=== PATIENT | male | born 1950 | race Two or more races ===

== ENCOUNTER 2025-09-24 13:19 | Inpatient (IN) | payer OTHER, MEDICAID ==
[~2025-09-24] VITALS: Ht 170.2 cm; Wt 81.0 kg
--- NOTE | 2025-09-24 13:39 | ED.PDOC ---
History of Present Illness HPI Comments 75-year-old male who is Greek-speaking presents to the ER with spouse and prior medical history of diabetes: Surgical history of ERCP and a chief complaint of hyperglycemia. Patient reports on having frequent urination associated with thirst and a sudden onset of dizziness and emesis last night. In triage the patient had a blood pressure 157 systolic and a blood sugar of 410. Denies any other symptoms at this time. Denies chills, fever, N/D, SOB, CP. No other associated symptoms, modifiers, recent injuries or sick contacts present at this time. Chief Complaint: Hyperglycemia Time Seen by MD: 13:30 Reviewed Notes: Nurses Notes, Medications, Allergies Allergies: Coded Allergies: NO KNOWN ALLERGIES (Unverified , 09/24/25) Information Source: Patient Mode of Arrival: Ambulatory Severity: Moderate Timing: Hours Duration: Since onset, Hours Prehospital treatment: None Past Medical History PAST MEDICAL HISTORY: DM Surgical History (Other): ERCP Family History Family History: Reviewed,noncontributory to illness, Family hx of HTN Social History Smoker: Non-Smoker Alcohol: Denies ETOH Use Drugs: Denies Drug Use Lives In: Home Constitutional: denies: chills, diaphoresis, fatigue, fever, malaise, sweats, weakness, others EENTM: denies: blurred vision, double vision, ear bleeding, ear discharge, ear drainage, ear pain, ear ringing, eye pain, eye redness, hearing loss, mouth pain, mouth swelling, nasal discharge, nose bleeding, nose congestion, nose pain, photophobia, tearing, throat pain, throat swelling, voice changes, others Respiratory: denies: cough, hemoptysis, orthopnea, SOB at rest, shortness of breath, SOB with excertion, stridor, wheezing, others Cardiovascular: denies: chest pain, dizzy spells, diaphoresis, Dyspnea on exertion, edema, irregular heart beat, left arm pain, lightheadedness, palpitations, PND, syncope, others Gastrointestinal: reports: vomiting; denies: abdomen distended, abdominal pain, blood streaked bowels, constipated, diarrhea, dysphagia, difficulty swallowing, hematemesis, melena, nausea, poor appetite, poor fluid intake, rectal bleeding, rectal pain, others Genitourinary: reports: frequency (And thirst); denies: burning, dysuria, flank pain, hematuria, incontinence, penile discharge, penile sore, pain, testicle pain, testicle swelling, urgency, others Neurological: reports: dizziness; denies: fainting, headache, left sided numbness, left sided weakness, numbness, paresthesia, pre-existing deficit, right sided numbness, right sided weakness, seizure, speech problems, tingling, tremors, weakness, others Musculoskeletal: denies: back pain, gout, joint pain, joint swelling, muscle pain, muscle stiffness, neck pain, others Integumetry: denies: bruises, change in color, change in hair/nails, dryness, laceration, lesions, lumps, rash, wounds, others Allergic/Immunocompromised: denies: Difficulty Healing, Frequent Infections, Hives, Itching, others Hematologic/Lymphatic: denies: anemia, blood clots, easy bleeding, easy bruising, swollen glands, others Endocrine: denies: excessive hunger, excessive sweating, excessive thirst, excessive urination, flushing, intolerance to cold, intolerance to heat, unexplained weight gain, unexplained weight loss, others Psychiatric: denies: anxiety, bipolar disorder, depression, hopeless, panic disorder, schizophrenia, sleepless, suicidal, others All Other Systems: Reviewed and Negative Physical Exam General Appearance: Moderate Distress HEENT: Normal ENT Inspection, Pharynx Normal, TMs Normal Neck: Full Range of Motion, Non-Tender, Normal, Normal Inspection Respiratory: Chest Non-Tender, Lungs Clear, No Accessory Muscle Use, No Respiratory Distress, Normal Breath Sounds Cardiovascular: No Edema, No JVD, No Murmur, No Gallop, Normal Peripheral Pulses, Regular Rate/Rhythm Breast Exam: Deferred Gastrointestinal: No Organomegaly, Non Tender, No Pulsatile Mass, Normal Bowel Sounds, Soft Genitalia: Deferred Pelvic: Deferred Rectal: Deferred Extremities: No calf tenderness, Normal capillary refill, Normal inspection, Normal range of motion, Non-tender, No pedal edema Musculoskeletal : Apperance: Normal Neurologic: Alert, senior ui software engineer II-XII nml as Tested, Motor Weakness, Normal Affect, Normal Mood, No Sensory Deficits Cerebellar Function: Normal Reflexes: Normal Skin: Dry, Normal Color, Warm Lymphatic: No Adenopathy Was a procedure done? Was a procedure done?: No Differential Dx Considerations may include: Hyperglycemia, uncontrolled diabetes, electrolyte imbalance X-Ray, Labs, Meds, VS Vital Signs Date Time Temp Pulse Resp B/P (MAP) Pulse Ox O2 Delivery O2 Flow Rate FiO2 09/24/25 13:27 81 09/24/25 13:21 99.2 88 18 151/90 95 99.2 Lab Test 09/24/25 13:50 09/24/25 13:41 09/24/25 13:32 Range/Units Urine Color Yellow Yellow Urine Clarity Clear Clear Urine pH 5.5 5.0-9.0 Urine Specific [employer] 1.039 H 1.001-1.035 Urine Protein Negative Negative Urine Ketones Negative Negative Urine Blood Trace H Negative /uL Urine Nitrite Negative Negative Urine Bilirubin 1+ Negative Urine Urobilinogen Normal Negative mg/dL Urine Leukocyte Esterase Negative Negative /uL Urine RBC 3 0 - 3 /hpf Urine Microscopic WBC 1 0-3 /HPF Urine Squamous Epithelial Cells None seen <5 /hpf Urine Bacteria None seen None Seen /hpf Urine Glucose 4+ H Normal mg/dL White Blood Count 10.2 4.4-10.8 10^3/uL Red Blood Count 4.97 4.5-5.90 10^6/uL Hemoglobin 15.3 13.5-17.5 g/dL Hematocrit 44.3 41.0-53.0 % Mean Corpuscular Volume 89.1 80.0-100.0 fL Mean Corpuscular Hemoglobin 30.8 28.0-32.0 pg Mean Corpuscular Hemoglobin Concent 34.6 32.0-36.0 g/dL Red Cell Distribution Width 13.0 11.8-14.3 % Platelet Count 159 140-450 10^3/uL Mean Platelet Volume 10.8 6.9-10.8 fL Neutrophils (%) (Auto) 89.0 H 37.0-80.0 % Lymphocytes (%) (Auto) 6.3 L 10.0-50.0 % Monocytes (%) (Auto) 4.2 0.0-12.0 % Eosinophils (%) (Auto) 0.3 0.0-7.0 % Basophils (%) (Auto) 0.2 0.0-2.0 % Neutrophils # (Auto) 9.1 H 1.6-8.6 10 ^3/uL Lymphocytes # (Auto) 0.6 0.4-5.4 10 ^3/uL Monocytes # (Auto) 0.4 0-1.3 10 ^3/uL Eosinophils # (Auto) 0 0-0.8 10 ^3/uL Basophils # (Auto) 0 0-0.2 10 ^3/uL Nucleated Red Blood Cells 0.0 % Sodium Level 134 L 136-145 mmol/L Potassium Level 4.0 3.5-5.1 mmol/L Chloride Level 98 98-107 mmol/L Carbon Dioxide Level 25 20-31 mmol/L Anion Gap 11 5-15 Blood Urea Nitrogen 12 9-23 mg/dL Creatinine 0.81 0.700-1.30 mg/dL Glomerular Filtration Rate Calc 93 >90 mL/min BUN/Creatinine Ratio 14.8 10.0-20.0 Serum Glucose 391 H 74-106 mg/dL Serum Osmolality Pending Calcium Level 9.4 8.7-10.4 mg/dL Beta-Hydroxybutyric Acid 0.155 < 0.4 mmol/L POC Glucose 410 *H 70-106 mg/dl Current Medications Medications (Trade) Dose Ordered Sig/Oskar Route Start Time Stop Time Status Last Admin Sodium Chloride 1,000 ml @ 1,000 mls/hr Q1H ONCE IV 09/24/25 13:45 09/24/25 14:44 DC 09/24/25 14:23 Insulin Human Regular (InsuLIN R) 5 units ONCE ONCE IV 09/24/25 13:45 09/24/25 13:46 DC 09/24/25 14:03 The patient's CBC and chemistry panel shows hyperglycemia at 309 The patient is was given normal saline at 1 L bolus Patient was given insulin 5 units IV push for the hyperglycemia The urine test is positive for glucose but no sign of infection The patient is being admitted the diagnosis of uncontrolled diabetes. Images Reviewed?: Images reviewed and evaluated by me Time of 1ST Reevaluation: 14:00 Reevaluation 1ST: Unchanged Patient Education/Counseling: Diagnosis, Treatment, Prognosis Family Education/Counseling: No Family Present SEPSIS Sepsis Screen Date sepsis recognized/suspect: Sep 24, 2025 Time Sepsis recognized/suspect: 1323 Recent Procedure: No On Antibiotic Therapy: No Respiratory Rate >20: No Heart Rate >90: Yes Temp<36 C (96.8 F) or >38.3 C: No SBP <90 or MAP <65 mmHG: No New Acute Mental Status Change: No Is the patient on CPAP, BIPAP,: No Physician Orders Heplock Iv (09/24/25 13:34) Manager Administration (09/24/25 13:34) Blood Pressure (09/24/25 13:34) Pulse Oximetry (09/24/25 13:34) Vital Signs Date Time Temp Pulse Resp B/P (MAP) Pulse Ox O2 Delivery O2 Flow Rate FiO2 09/24/25 13:27 81 09/24/25 13:21 99.2 88 18 151/90 95 99.2 Laboratory Tests Test 09/24/25 13:41 White Blood Count 10.2 10^3/uL (4.4-10.8) Medications Medications Dose Ordered Sig/Oskar Route Start Time Stop Time Status Last Admin Dose Admin Insulin Human Regular 5 units ONCE ONCE IV 09/24/25 13:45 09/24/25 13:46 DC 09/24/25 14:03 Sodium Chloride 1,000 ml @ 1,000 mls/hr Q1H ONCE IV 09/24/25 13:45 09/24/25 14:44 DC 09/24/25 14:23 Departure 1 Departure Time of Disposition: 16:07 Impression: Primary Impression: Uncontrolled diabetes mellitus Qualified Codes: E13.65 - Other specified diabetes mellitus with hyperglycemia Disposition: ADMITTED INPATIENT Admit to: Med Surg Condition: Fair Critical Care Note Critical Care Time?: No Stability Stability form required: Yes Unstable for transfer: ED Physician Assesment (Clinical assesment) Heart Score Heart Score: Heart Score Response (Comments) Value History N/A 0 EKG N/A 0 Age N/A 0 Risk Factors N/A 0 Troponin N/A 0 Total 0 I personally scribed for MICHAEL YOUSIF MD ([email or web address]) on 09/24/25 at 13:39. Electronically submitted by Isrrael Pham ([email or web address]). MICHAEL YOUSIF MD Sep 24, 2025 13:39
[2025-09-24 13:50] LABS: Hematocrit 44.3 % (41.0-53.0); Hemoglobin 15.3 g/dL (13.5-17.5); Mean Corpuscular Hemoglobin 30.8 pg (28.0-32.0); Mean Corpuscular Volume 89.1 fL (80.0-100.0); Nucleated Red Blood Cells % 0.0 %
--- NOTE | 2025-09-24 13:54 | ECG ---
[facility] Test Date: 2025-09-24 Test Time: 13:27:57 Pat Name: KEYLA ROSENBAUM Department: ED Room: 0246 Gender: M Net Lead Developer: OMAR : 1950 Requested By: MICHAEL YOUSIF Order Number: [id number] Reading MD: Pancho Brizuela Measurements Intervals [place] Rate: 81 P: 6 WI: 156 QRS: -70 QRSD: 97 T: 57 QT: 357 QTc: 415 Interpretive Statements Sinus rhythm Inferior infarct, old Borderline ST elevation, anterior leads Electronically Signed On 09-26-2025 17:19:46 PST by Pancho Brizuela Please click the below link to view image of tracing.
[2025-09-24] MEDS: InsuLIN REG 1unit/0.01ml Soln (100units/ml) IV ONE (14:03)
[2025-09-24 14:14] LABS: Chloride 98 mmol/L (98-107); Potassium 4.0 mmol/L (3.5-5.1)
[2025-09-24 14:14] LABS: Urine Protein, UAD Negative (Negative)
[2025-09-24 14:15] LABS: Anion Gap 11 (5-15); Carbon Dioxide 25 mmol/L (20-31); Sodium 134 mmol/L (136-145)
[2025-09-24 14:16] LABS: Calcium 9.4 mg/dL (8.7-10.4)
[2025-09-24 14:21] LABS: BUN/Creatinine Ratio 14.8 (10.0-20.0); Blood Urea Nitrogen 12 mg/dL (9-23); Glucose 391 mg/dL (74-106)
[2025-09-24] MEDS: SODIUM CHLORIDE 0.9% 1,000 ML IV ONE (14:23)
--- NOTE | 2025-09-24 15:42 | DVHHPRES ---
History of Present Illness Resident Creating Document: RENETTA VILLARREAL RESIDENT History of Present Illness Tee Maguire, A 75-year-old Emirati-speaking male with a history of type 2 diabetes on metformin, BPH, osteoarthritis, vitamin d deficiency and prior ERCP presents to the ER with hyperglycemia, reporting frequent urination, thirst, and sudden onset dizziness with emesis last night; triage noted BP 157 systolic and blood glucose 410; patient denies fever, chills, nausea, diarrhea, chest pain, shortness of breath, recent injuries, or sick contacts. PMHx: type 2 diabetes on metformin, BPH, osteoarthritis, vitamin d deficiency PSHx: ERCP Family history: diabetes mellitus, HTN, noncontributory to the admission Social history: Emirati-speaking, Patient is a non-smoker, denies alcohol and illicit drug use, and lives at home.ck. Review of Systems Constitutional: Yes: Weakness, Malaise; No: Fever, Chills, Sweats, Other Eyes: No: Pain, Vision change, Conjunctivae inflammation, Eyelid inflammation, Other, Redness ENT: No: Ear pain, Ear discharge, Nose pain, Nose discharge, Nose congestion, Mouth pain, Mouth swelling, Throat pain, Throat swelling, Other Respiratory: No: Cough, Dry, Shortness of breath, SOB with excertion, Wheezing, Hemoptysis, Pleuritic Pain, Sputum, Wheezing, Other Cardiovascular: Lt Headedness; No: Chest Pain, Palpitations, Orthopnea, Paroxysmal Noc. Dyspnea, Edema, Other Gastrointestinal: No: Nausea, Vomiting, Abdominal Pain, Diarrhea, Constipation, Melena, Hematochezia, Other Genitourinary: No Dysuria; Frequency; No Incontinence, No Hematuria, No Retention, No Other Musculoskeletal: No: other, neck pain, shoulder pain, arm pain, back pain, hand pain, leg pain, foot pain Skin: No: Rash, Lesions, Jaundice, Bruising, Other Neurological: No: Weakness, Numbness, Incoordination, Change in speech, Confusion, Seizures, Other Allergies: Coded Allergies: NO KNOWN ALLERGIES (Unverified , 09/24/25) Medications Current Medications Medications Dose Ordered Sig/Oskar Route Start Time Stop Time Status Last Admin Dose Admin Acetaminophen/ Hydrocodone Bitart 1 tab Q4HP PRN PO 09/24/25 15:45 Ondansetron HCl 4 mg Q4HP PRN IV 09/24/25 15:45 Docusate Sodium 100 mg BIDPRN PRN PO 09/24/25 15:45 Acetaminophen 650 mg Q6HP PRN PO 09/24/25 15:45 Morphine Sulfate 2 mg Q4HPRN PRN IV 09/24/25 15:45 Enoxaparin Sodium 40 mg DAILY SC 09/24/25 15:45 Nitroglycerin 0.4 mg Q5MINP PRN SL 09/24/25 15:45 Morphine Sulfate 2 mg Q30M PRN IV 09/24/25 15:45 Tamsulosin HCl 0.4 mg QPM PO 09/24/25 18:00 Exam Vital Signs Vital Signs Date Time Temp Pulse Resp B/P (MAP) Pulse Ox O2 Delivery O2 Flow Rate FiO2 09/24/25 13:27 81 09/24/25 13:21 99.2 18 151/90 95 99.2 General Appearance: Alert, Oriented X3, Cooperative, No acute distress HEENT: Atraumatic, PERRLA, EOMI, Mucous membr. moist/pink, Other (icterus) Respiratory: Clear to auscultation, Normal air movement, Other (in room air ) Cardiovascular: Regular rate, Normal S1, Normal S2, No murmurs Abdominal: Normal bowel sounds, Soft, No hepatospenomegaly, No masses, Other (RUQ tenderness. ) Extremities: No clubbing, No cyanosis, No edema, Normal pulses, No tendernes s/swelling Skin: No rashes, No breakdown, No significant lesion Neuro: Normal gait, Normal speech, Strength at 5/5 X4 ext, Normal tone, Sensation intact, Cranial nerves 3-12 NL, Reflexes 2+ Psych/Mental Status: Mental status NL, Mood NL Labs/Xrays Labs Test 09/24/25 13:50 09/24/25 13:41 09/24/25 13:32 Range/Units Urine Color Yellow Yellow Urine Clarity Clear Clear Urine pH 5.5 5.0-9.0 Urine Specific [employer] [place] 1.039 H 1.001-1.035 Urine Protein Negative Negative Urine Ketones Negative Negative Urine Blood Trace H Negative /uL Urine Nitrite Negative Negative Urine Bilirubin 1+ Negative Urine Urobilinogen Normal Negative mg/dL Urine Leukocyte Esterase Negative Negative /uL Urine RBC 3 0 - 3 /hpf Urine Microscopic WBC 1 0-3 /HPF Urine Squamous Epithelial Cells None seen <5 /hpf Urine Bacteria None seen None Seen /hpf Urine Glucose 4+ H Normal mg/dL White Blood Count 10.2 4.4-10.8 10^3/uL Red Blood Count 4.97 4.5-5.90 10^6/uL Hemoglobin 15.3 13.5-17.5 g/dL Hematocrit 44.3 41.0-53.0 % Mean Corpuscular Volume 89.1 80.0-100.0 fL Mean Corpuscular Hemoglobin 30.8 28.0-32.0 pg Mean Corpuscular Hemoglobin Concent 34.6 32.0-36.0 g/dL Red Cell Distribution Width 13.0 11.8-14.3 % Platelet Count 159 140-450 10^3/uL Mean Platelet Volume 10.8 6.9-10.8 fL Neutrophils (%) (Auto) 89.0 H 37.0-80.0 % Lymphocytes (%) (Auto) 6.3 L 10.0-50.0 % Monocytes (%) (Auto) 4.2 0.0-12.0 % Eosinophils (%) (Auto) 0.3 0.0-7.0 % Basophils (%) (Auto) 0.2 0.0-2.0 % Neutrophils # (Auto) 9.1 H 1.6-8.6 10 ^3/uL Lymphocytes # (Auto) 0.6 0.4-5.4 10 ^3/uL Monocytes # (Auto) 0.4 0-1.3 10 ^3/uL Eosinophils # (Auto) 0 0-0.8 10 ^3/uL Basophils # (Auto) 0 0-0.2 10 ^3/uL Nucleated Red Blood Cells 0.0 % Sodium Level 134 L 136-145 mmol/L Potassium Level 4.0 3.5-5.1 mmol/L Chloride Level 98 98-107 mmol/L Carbon Dioxide Level 25 20-31 mmol/L Anion Gap 11 5-15 Blood Urea Nitrogen 12 9-23 mg/dL Creatinine 0.81 0.700-1.30 mg/dL Glomerular Filtration Rate Calc 93 >90 mL/min BUN/Creatinine Ratio 14.8 10.0-20.0 Serum Glucose 391 H 74-106 mg/dL Calcium Level 9.4 8.7-10.4 mg/dL Beta-Hydroxybutyric Acid 0.155 < 0.4 mmol/L POC Glucose 410 *H 70-106 mg/dl SEPSIS Sepsis Screen Date sepsis recognized/suspect: Sep 24, 2025 Time Sepsis recognized/suspect: 1322 Recent Procedure: No On Antibiotic Therapy: No Respiratory Rate >20: No Heart Rate >90: Yes Temp<36 C (96.8 F) or >38.3 C: No SBP <90 or MAP <65 mmHG: No New Acute Mental Status Change: No Is the patient on CPAP, BIPAP,: No Physician Orders Heplock Iv (09/24/25 13:34) Contract Accountant (09/24/25 13:34) Blood Pressure (09/24/25 13:34) Pulse Oximetry (09/24/25:34) Admit (09/24/25:) Allergies (09/24/25:) Code Status (09/24/25 15:) Hydrocodone-Acet 5/325mg Tab (Recluse 5/32 (09/24/25 15:45) Ondansetron Hcl (Zofran) (09/24/25 15:45) Docusate Sodium Capsule (Colace Capsule) (09/24/25 15:45) Complete Blood Count (09/25/25 04:00) Comprehensive Metabolic Panel (09/25/25 04:00) Cardiac Diet-2gna,Lofat,Lochol (09/24/25 Dinner) Condition: Serious (09/24/25 15:31) Acetaminophen Tablet (Tylenol Tablet) (09/24/25 15:45) Enoxaparin Sodium (Lovenox) (09/24/25 15:45) Nitroglycerin Sublingual (Ntrostat Subli (09/24/25 15:45) Oxygen By Nasal Cannula (09/24/25:31) Stat Ekg For Chest Pain (09/24/25:31) Notify Md Of Changes From Base (09/24/25:31) Lube Worker For 24 Hours (09/24/25 15:31) Emergency Dysrhythmia Protocol (09/24/25 15:31) Rhythm Strips Once Every Shift (09/24/25 15:31) Morphine Sulfate Injection (09/24/25 15:45) Morphine Sulfate Injection (09/24/25 15:45) Tamsulosin Hydrochloride (Flomax) (09/24/25 18:00) Osmolality, Serum (09/24/25 15:35) Lipase (09/24/25 15:38) Urinalysis (09/24/25 15:38) Covid19 Antigen [place] (09/24/25 ) Rapid Influenza A&B (09/24/25 15:38) Basic Metabolic Panel (09/24/25 15:38) Vital Signs Date Time Temp Pulse Resp B/P (MAP) Pulse Ox O2 Delivery O2 Flow Rate FiO2 09/24/25 13:27 81 09/24/25 13:21 99.2 88 18 151/90 95 99.2 Laboratory Tests Test 09/24/25 13:41 White Blood Count 10.2 10^3/uL (4.4-10.8) Medications Medications Dose Ordered Sig/Oskar Route Start Time Stop Time Status Last Admin Dose Admin Insulin Human Regular 5 units ONCE ONCE IV 09/24/25 13:45 09/24/25 13:46 DC 09/24/25 14:03 5 UNITS Sodium Chloride 1,000 ml @ 1,000 mls/hr Q1H ONCE IV 09/24/25 13:45 09/24/25 14:44 DC 09/24/25 14:23 1,000 MLS/HR Assessment/Plan Assessment/Plan #Presented with HHS: Ruled out DKA, negative anion gap, negative ketones, negative acidosis but presented BG of 410, serum osmolality 302, status post IV insulin, BG slowly came down to 391, 3O2, now below 250 at bedside check. Conservative management to continue, IV fluid, CC diet, basal bolus insulin to continue. Patient will need close follow up with campaign manager outpatient michael and insulin regimen at discharge. Ruled out secondary cause of stress / trigger with ruling out UTI, respiratory infection, viral panel, any other possible trigger. #Dizziness, presyncope: Denies any fall or loss of consciousness, could be age related, physical therapy before discharge to ensure safety in the geriatric patient. Echo to rule out any cardiac structural disease. Orthostatic vitals to james #Undiscovered essential hypertension, uncontrolled: Patient is at home not on any antihypertensives presented with elevated blood pressure, between 170s to 150s, given diabetic target blood pressure 130/80 or below as per aha/ ACC guidelines but liberal blood pressure control is also reasonable in this sedated patient. Started with amlodipine 5 mg daily, needs to [place] home with the m edications. #type 2 diabetes on metformin , uncontrolled: presented with HbA1c of 10.1, started on basal bolus dose, diabetic counseling, CC diet lifestyle modification to continue. Target blood glucose in-hospital 140-180, avoid hypoglycemia. #BPH: Home tamsulosin 0.4mg, continue for now, no other urinary symptoms, UA unremarkable except high glucose load. #osteoarthritis: Age-related, mobility and stability check with the physical therapist as patient has intermittent dizziness. #vitamin d deficiency: Supplements to continue. #Transamnitis: Liver US, f/u CMP, hepatitis panel, avoid hepatotoxics. check INR/PT rule out cirrhosis vs fatty liver. PUD prophylaxis: protonix 40mg/not needed DVT prophylaxis: Levonox 40mg/SCD/brisk movement. Barriers to discharge: Medical diagnosis and management in progress. Patient lives with family. PT eval before discharge. PCP: Dr. Mauri Nolasco. poor follow up. Specialist Relevant To Admission: Thread Marker, not consulted but we will benefit from following up outpatient michael. Case discussed with Dr. Gilbert. Code Status: Full Code. Discussion For goals of care and care plan needed total 29 minutes bedside. as patient is not getting IV insulin drip no need to keep the patient at STEF/ICU level. close follow up at telemetry level. Plan discussed with: Patient, Other (family ) My Orders Orders - RENETTA VILLARREAL RESIDENT Procedure Category Date Status Time Admit ADMIT 09/24/25 Transmitted 15:31 Allergies MOY 09/24/25 In Process 15:31 Code Status CODE 09/24/25 Transmitted 15:31 Hydrocodone-Acet PHA 09/24/25 In Process 5/325mg Tab (Recluse 15:45 Ondansetron Hcl PHA 09/24/25 In Process (Zofran) 15:45 Docusate Sodium PHA 09/24/25 In Process Capsule (Colace 15:45 Complete Blood Count LAB 09/25/25 Verified 04:00 Comprehensive LAB 09/25/25 Verified Metabolic Panel 04:00 Cardiac DIET 09/24/25 Transmitted Diet-2gna,Lofat,Lochol Dinner Condition: Serious MOY 09/24/25 In Process 15:31 Acetaminophen Tablet PHA 09/24/25 In Process (Tylenol Tablet) 15:45 Enoxaparin Sodium PHA 09/24/25 In Process (Lovenox) 15:45 Nitroglycerin PHA 09/24/25 In Process Sublingual (Ntrostat 15:45 Oxygen By Nasal RT 09/24/25 Transmitted Cannula 15:31 Stat Ekg For Chest [facility] 09/24/25 In Process Pain 15:31 Notify Md Of Changes MOY 09/24/25 In Process From Base 15:31 Lube Worker For MOY 09/24/25 In Process 24 Hours 15:31 Emergency Dysrhythmia MOY 09/24/25 In Process Protocol 15:31 Rhythm Strips Once MOY 09/24/25 In Process Every Shift 15:31 Morphine Sulfate PHA 09/24/25 In Process Injection 15:45 Morphine Sulfate PHA 09/24/25 In Process Injection 15:45 Tamsulosin PHA 09/24/25 In Process Hydrochloride (Flomax) 18:00 Osmolality, Serum LAB 09/24/25 Logged 15:35 Lipase LAB 09/24/25 Logged 15:38 Urinalysis LAB 09/24/25 Logged 15:38 Covid19 Antigen [place]lin LAB 09/24/25 Logged Rapid Influenza A&B LAB 09/24/25 Logged 15:38 Basic Metabolic Panel LAB 09/24/25 Logged 15:38 Date of Service: Sep 24, 2025 Billing Provider: PRATIBHA GILBERT MD Common Visit Codes: 29183-[id number] INP/OBS CARE (HIGH) Secondary Visit Codes: 89985-[id number] CARE PLAN 30 MINUTES RENETTA VILLARREAL RESIDENT Sep 24, 2025 15:42
[2025-09-24] MEDS ORDERED: HYDROcodone-ACET 5/325MG TAB PO PRN (15:45)
[2025-09-24] MEDS ORDERED: DOCUSATE SOD 100 MG CAP PO PRN (15:45)
[2025-09-24] MEDS ORDERED: ONDANSETRON HCL 4 MG/2 ML VIAL IV PRN (15:45)
[2025-09-24] MEDS ORDERED: MORPHINE SULFATE 4 MG/ML SYR/VIAL IV PRN ×2 (15:45)
[2025-09-24] MEDS ORDERED: NITROGLYCERIN 0.4 MG SL TAB SL PRN (15:45)
[2025-09-24] MEDS: ENOXAPARIN SOD 40 MG/0.4 ML SYRINGE SC SCH (16:09)
[2025-09-24] MEDS ORDERED: DEXTROSE (50%) 50ML SYRG IV PRN (16:30)
[2025-09-24] MEDS: InsuLIN REG 1unit/0.01ml Soln (100units/ml) SC SCH (17:16)
[2025-09-24] MEDS: ACCU-CHEK COMFORT CURVE STRIP VI SCH (17:16)
[2025-09-24 17:17] LABS: COVID19 ANTIGEN SOFIA FIA NEGATIVE (NEGATIVE)
[2025-09-24] MEDS ORDERED: TAMSULOSIN HYDROCHLORIDE 0.4 MG CAP PO SCH (18:00)
[2025-09-24 18:33] VITALS: BP 174/94; PULSE 80; RESP 18; TEMP 97.8; O2SAT 95
[2025-09-24] MEDS ORDERED: METF-370 PO (19:43)
[2025-09-24 19:44] LABS: Albumin 4.5 g/dL (3.2-4.8); Total Protein 7.4 g/dL (5.7-8.2)
[2025-09-24] MEDS ORDERED: LISI40TA16 PO (19:46)
[2025-09-24] MEDS ORDERED: TAMS1CAP25 PO (19:46)
[2025-09-24 19:50] LABS: Alanine Aminotransferase 412.0 U/L (7-40); Alkaline Phosphatase 124.0 U/L (46-116); Bilirubin, Direct 2.5 mg/dL (<0.3); Bilirubin, Total 4.1 mg/dL (0.2-1.0)
[2025-09-24 21:00] VITALS: BP 159/93; PULSE 87; RESP 17; TEMP 98.3; O2SAT 97
[2025-09-24 21:26] LABS: INR 1.19 (0.9-1.15); Prothrombin Time 12.4 sec (9.3-11.8)
[2025-09-24] MEDS: INSULIN LANTUS (GLARGINE) 1 /0.01ml (100units/ml) SC SCH (22:24)
[2025-09-24] MEDS: ATORVASTATIN 20 MG TAB PO SCH (22:25)
--- NOTE | 2025-09-24 22:55 | DVH ---
ABDOMINAL ULTRASOUND CLINICAL HISTORY: rule out cirrhosis and hepatobiliary obstruction TECHNIQUE: Multiple grayscale and color Doppler ultrasound images were obtained of the abdomen. WID: COMPARISON: None FINDINGS: Liver and Biliary System: Increased echogenicity, normal size measuring 16.1 cm. No focal hepatic observations. No intrahepatic bile duct dilatation. The common duct measures 0.6 cm at the reanna hepatis. The gallbladder is not visualized. Sonographic kenny's sign is negative. Pancreas: Visualized portions are unremarkable. Kidneys: The right kidney is 10.4 cm . No hydronephrosis, increased echogenicity, shadowing stone, or focal lesion. IMPRESSION: 1. Hepatic steatosis. 2. Gallbladder is not visualized and may be contracted. 3. No biliary ductal dilatation.
[2025-09-25] VITALS (7 sets, daily range): BP systolic 133–153; BP diastolic 76–85; PULSE 75–94; RESP 16–19; TEMP 97.1–98.6; O2SAT 93–97
[2025-09-25] MEDS: SODIUM CHLORIDE 0.9% 1,000 ML IV SCH
[2025-09-25] MEDS: TAMSULOSIN HYDROCHLORIDE 0.4 MG CAP PO SCH (01:07)
--- NOTE | 2025-09-25 05:42 | DVH ---
CHEST RADIOGRAPH Indication: Rule out community acquired pneumonia, Technique: Single frontal view of the chest was obtained COMPARISON: None FINDINGS: Lines and Tubes: None Lungs: Increased interstital prominence. This may represent pulmonary vascular congestion and/or viral pneumonia. Pleura: No effusion.No pneumothorax. Cardiomediastinal contours: Unremarkable Bones: Unremarkable IMPRESSION: Increased interstital prominence. This may represent pulmonary vascular congestion and/or viral pneumonia.
[2025-09-25 06:30] LABS: Hematocrit 39.9 % (41.0-53.0); Hemoglobin 13.5 g/dL (13.5-17.5); Mean Corpuscular Hemoglobin 30.1 pg (28.0-32.0); Mean Corpuscular Volume 89.2 fL (80.0-100.0); Nucleated Red Blood Cells % 0.0 %
[2025-09-25 06:57] LABS: Alkaline Phosphatase 106 U/L (46-116); Anion Gap 12 (5-15); BUN/Creatinine Ratio 18.6 (10.0-20.0); Blood Urea Nitrogen 11 mg/dL (9-23); Carbon Dioxide 24 mmol/L (20-31); Chloride 101 mmol/L (98-107); Sodium 137 mmol/L (136-145); Total Protein 6.3 g/dL (5.7-8.2)
[2025-09-25 06:58] LABS: Albumin 3.7 g/dL (3.2-4.8)
[2025-09-25 07:03] LABS: Alanine Aminotransferase 275 U/L (7-40); Bilirubin, Total 2.5 mg/dL (0.2-1.0); Calcium 8.7 mg/dL (8.7-10.4); Glucose 169 mg/dL (74-106); Potassium 3.1 mmol/L (3.5-5.1)
[2025-09-25] MEDS: ACETAMINOPHEN 325 MG TAB PO PRN (10:27)
[2025-09-25] MEDS: CHOLECALCIFEROL (VITD3) 1,000UNIT=25mCg TAB PO SCH (10:28)
--- NOTE | 2025-09-25 10:45 | DVHPN2 ---
Changes from previous H/P or p: No Changes Eyes: No Pain, No Vision change, No Conjunctivae inflammation, No Eyelid inflammation, No Other, No Redness ENT: No Ear pain, No Ear discharge, No Nose pain, No Nose discharge, No Nose congestion, No Mouth pain, No Mouth swelling, No Throat pain, No Throat swelling, No Other Cardiovascular: No Chest Pain, No Palpitations, No Orthopnea, No Paroxysmal Noc. Dyspnea, No Edema; Lt Headedness; No Other Respiratory: No Cough, No Dry, No Shortness of breath, No SOB with excertion, No Wheezing, No Hemoptysis, No Pleuritic Pain, No Sputum, No Other Gastrointestinal: No Nausea, No Vomiting, No Abdominal Pain, No Diarrhea, No Constipation, No Melena, No Hematochezia, No Other Genitourinary: No Dysuria; Frequency; No Incontinence, No Hematuria, No Retention, No Other Musculoskeletal: No other, No neck pain, No shoulder pain, No arm pain, No back pain, No hand pain, No leg pain, No foot pain Skin: No Rash, No Lesions, No Jaundice, No Bruising, No Other Objective Vitals Vital Signs Date Time Temp Pulse Resp B/P (MAP) Pulse Ox O2 Delivery O2 Flow Rate FiO2 09/25/25 10:27 133/83 09/25/25 09:24 97.1 80 17 95 97.1 09/24/25 20:00 Room Air* 0 21 Intake/Output Intake and Output 09/25/25 07:00 Intake Total 400 ml Balance 400 ml Intake Oral 400 ml # Voids 4 # Bowel Movements 1 Medications Current Medications Medications Dose Ordered Sig/Oskar Route Start Time Stop Time Status Last Admin Dose Admin Acetaminophen/ Hydrocodone Bitart 1 tab Q4HP PRN PO 09/24/25 15:45 Ondansetron HCl 4 mg Q4HP PRN IV 09/24/25 15:45 Docusate Sodium 100 mg BIDPRN PRN PO 09/24/25 15:45 Acetaminophen 650 mg Q6HP PRN PO 09/24/25 15:45 09/25/25 10:27 650 MG Morphine Sulfate 2 mg Q4HPRN PRN IV 09/24/25 15:45 Enoxaparin Sodium 40 mg DAILY SC 09/24/25 15:45 09/25/25 10:28 40 MG Nitroglycerin 0.4 mg Q5MINP PRN SL 09/24/25 15:45 Morphine Sulfate 2 mg Q30M PRN IV 09/24/25 15:45 Atorvastatin Calcium 40 mg HS PO 09/24/25 22:00 09/24/25 22:25 40 MG Insulin Glargine 25 units HS SC 09/24/25 22:00 09/24/25 22:24 25 UNITS Diagnostic Test (Pha) 1 strip ACHS 09/24/25 17:00 09/25/25 06:30 1 STRIP Insulin Human Regular ACHS SC 09/24/25 17:00 09/25/25 06:32 3 UNITS Dextrose 50 ml UD PRN IV 09/24/25 16:30 Amlodipine Besylate 5 mg DAILY PO 09/25/25 10:00 09/25/25 10:27 5 MG Cholecalciferol 2,000 unit DAILY PO 09/25/25 10:00 09/25/25 10:28 2,000 UNIT Sodium Chloride 1,000 ml @ 75 mls/hr [id number] IV 09/24/25 19:00 09/25/25 00:00 75 MLS/HR Tamsulosin HCl 0.4 mg QPM PO 09/25/25 01:30 09/25/25 01:07 0.4 MG Laboratory Results Laboratory Tests 09/25/25 05:37 Chemistry Test 09/24/25 13:41 09/25/25 05:37 Albumin 4.5 g/dL (3.2-4.8) 3.7 g/dL (3.2-4.8) Calcium Level 9.4 mg/dL (8.7-10.4) 8.7 mg/dL (8.7-10.4) Total Protein 7.4 g/dL (5.7-8.2) 6.3 g/dL (5.7-8.2) Coagulation Test 09/24/25 20:53 Prothrombin Time 12.4 sec (9.3-11.8) H Prothrombin Time INR 1.19 (0.9-1.15) H LFT Test 09/24/25 13:41 09/25/25 05:37 Alanine Aminotransferase (ALT) 412 U/L (7-40) H 275 U/L (7-40) H Alkaline Phosphatase 124 U/L (46-116) H 106 U/L (46-116) Aspartate Amino Transferase (AST) 342 U/L (13-40) H 126 U/L (13-40) H Direct Bilirubin 2.5 mg/dL (<0.3) H Total Bilirubin 4.1 mg/dL (0.2-1.0) H 2.5 mg/dL (0.2-1.0) H HgA1c, TSH Test 09/24/25 13:41 Hemoglobin A1c 10.1 % A1C (<5.7) H Urinalysis Test 09/24/25 13:50 Urine Color Yellow (Yellow) Urine Clarity Clear (Clear) Urine pH 5.5 (5.0-9.0) Urine Specific [place] 1.039 (1.001-1.035) Urine Protein Negative (Negative) Urine Ketones Negative (Negative) Urine Blood Trace /uL (Negative) H Urine Nitrite Negative (Negative) Urine Bilirubin 1+ (Negative) Urine Urobilinogen Normal mg/dL (Negative) Urine Leukocyte Esterase Negative /uL (Negative) Urine RBC 3 /hpf (0 - 3) Urine Microscopic WBC 1 /HPF (0-3) Urine Squamous Epithelial Cells None seen /hpf (<5) Urine Bacteria None seen /hpf (None Seen) Urine Glucose 4+ mg/dL (Normal) H Assessment/Plan Assessment/Plan #HHS: Ruled out DKA, negative anion gap, negative ketones, negative acidosis but presented BG of 410, serum osmolality 302, status post IV insulin, BG slowly came down to 391, 3O2, now below 250 at bedside check. Conservative management to continue, IV fluid, CC diet, basal bolus insulin to continue. Patient will need close follow up with project executive outpatient michael and insulin regimen at discharge. Ruled out secondary cause of stress / trigger with ruling out UTI, respiratory infection, viral panel, any other possible trigger. #Dizziness, presyncope: Denies any fall or loss of consciousness, could be age related, physical therapy before discharge to ensure safety in the geriatric patient. Echo to rule out any cardiac structural disease. Orthostatic vitals to james #Undiscovered essential hypertension, uncontrolled: Patient is at home not on any antihypertensives presented with elevated blood pressure, between 170s to 150s, given diabetic target blood pressure 130/80 or below as per aha/ ACC guidelines but liberal blood pressure control is also reasonable in this sedated patient. Started with amlodipine 5 mg daily, needs to [facility] home with the medications. #type 2 diabetes on metformin , uncontrolled: presented with HbA1c of 10.1, started on basal bolus dose, diabetic counseling, CC diet lifestyle modification to continue. Target blood glucose in-hospital 140-180, avoid hypoglycemia. #BPH: Home tamsulosin 0.4mg, continue for now, no other urinary symptoms, UA unremarkable except high glucose load. #osteoarthritis: Age-related, mobility and stability check with the physical therapist as patient has intermittent dizziness. #vitamin d deficiency: Supplements to continue. #Transamnitis: Liver US, f/u CMP, hepatitis panel, avoid hepatotoxics. check INR/PT rule out cirrhosis vs fatty liver. PUD prophylaxis: protonix 40mg/not needed DVT prophylaxis: Levonox 40mg/SCD/brisk movement. Continue current management. BG still high above 300s Will add lantus 25 units qhs Continue SSI DW daughter and patient regarding to goal of care. Plan discussed with: Patient, Daughter Date of Service: Sep 25, 2025 Billing Provider: WESTON GUADALUPE MD Common Visit Codes: [id number] INP/OBS CARE(HIGH) WESTON GUADALUPE MD Sep 25, 2025 10:45
[2025-09-25 15:34] LABS: Hepatitis A Total Antibody Positive (Negative); Hepatitis B Surface Antigen Negative (Negative); Hepatitis C Antibody Negative (Negative)
[2025-09-25] MEDS: POTASSIUM CHL 20 Meq TABLET PO ONE (18:27)
[2025-09-25] MEDS: FUROSEMIDE 40 MG/4 ML VIAL IV ONE (18:34)
[2025-09-25] MEDS: INSULIN LANTUS (GLARGINE) 1 /0.01ml (100units/ml) SC SCH (21:47)
[2025-09-26] VITALS (7 sets, daily range): BP systolic 131–148; BP diastolic 74–91; PULSE 75–89; RESP 16–18; TEMP 97.8–99; O2SAT 94–96
--- NOTE | 2025-09-26 11:53 | DVHPN2 ---
Subjective The patient seen and examined at bedside. Still nausea but no vomiting. Reviewed: Care Plan, H&P, Labs, Medications, Previous Orders, Radiology Changes from previous H/P or p: No Changes Eyes: No Pain, No Vision change, No Conjunctivae inflammation, No Eyelid inflammation, No Other, No Redness ENT: No Ear pain, No Ear discharge, No Nose pain, No Nose discharge, No Nose congestion, No Mouth pain, No Mouth swelling, No Throat pain, No Throat swelling, No Other Cardiovascular: No Chest Pain, No Palpitations, No Orthopnea, No Paroxysmal Noc. Dyspnea, No Edema; Lt Headedness; No Other Respiratory: No Cough, No Dry, No Shortness of breath, No SOB with excertion, No Wheezing, No Hemoptysis, No Pleuritic Pain, No Sputum, No Other Gastrointestinal: No Nausea, No Vomiting, No Abdominal Pain, No Diarrhea, No Constipation, No Melena, No Hematochezia, No Other Genitourinary: No Dysuria; Frequency; No Incontinence, No Hematuria, No Retention, No Other Musculoskeletal: No other, No neck pain, No shoulder pain, No arm pain, No back pain, No hand pain, No leg pain, No foot pain Skin: No Rash, No Lesions, No Jaundice, No Bruising, No Other Objective Vitals Vital Signs Date Time Temp Pulse Resp B/P (MAP) Pulse Ox O2 Delivery O2 Flow Rate FiO2 09/26/25 10:11 141/81 09/26/25 08:33 99.0 78 17 96 99.0 09/26/25 08:00 Room Air* 0 21 Intake/Output Intake and Output 09/26/25 07:00 Intake Total 700 ml Output Total 600 ml Balance 100 ml Intake Oral 700 ml Output Urine Total 600 ml # Voids 7 # Bowel Movements 2 General Appearance: Alert, Oriented X3, Cooperative, No acute distress HEENT: Atraumatic, PERRLA, EOMI, Mucous membr. moist/pink Neck: Supple Lungs: Clear to auscultation, Normal air movement Cardiovascular: Regular rate, Normal S1, Normal S2, No murmurs, Gallops, Rubs Abdomen: Normal bowel sounds, Soft, No tenderness Neuro: Cranial nerves 3-12 NL Psych/Mental Status: Mental status NL Medications Current Medications Medications Dose Ordered Sig/Oskar Route Start Time Stop Time Status Last Admin Dose Admin Acetaminophen/ Hydrocodone Bitart 1 tab Q4HP PRN PO 09/24/25 15:45 Ondansetron HCl 4 mg Q4HP PRN IV 09/24/25 15:45 Docusate Sodium 100 mg BIDPRN PRN PO 09/24/25 15:45 Acetaminophen 650 mg Q6HP PRN PO 09/24/25 15:45 09/25/25 10:27 650 MG Morphine Sulfate 2 mg Q4HPRN PRN IV 09/24/25 15:45 Enoxaparin Sodium 40 mg DAILY SC 09/24/25 15:45 09/26/25 10:12 40 MG Nitroglycerin 0.4 mg Q5MINP PRN SL 09/24/25 15:45 Morphine Sulfate 2 mg Q30M PRN IV 09/24/25 15:45 Atorvastatin Calcium 40 mg HS PO 09/24/25 22:00 09/25/25 21:45 40 MG Diagnostic Test (Pha) 1 strip ACHS 09/24/25 17:00 09/26/25 11:22 1 STRIP Insulin Human Regular ACHS SC 09/24/25 17:00 09/26/25 11:23 6 UNITS Dextrose 50 ml UD PRN IV 09/24/25 16:30 Amlodipine Besylate 5 mg DAILY PO 09/25/25 10:00 09/26/25 10:11 5 MG Cholecalciferol 2,000 unit DAILY PO 09/25/25 10:00 09/26/25 10:12 2,000 UNIT Sodium Chloride 1,000 ml @ 75 mls/hr [id number] IV 09/24/25 19:00 09/25/25 00:00 75 MLS/HR Tamsulosin HCl 0.4 mg QPM PO 09/25/25 01:30 09/25/25 18:27 0.4 MG Insulin Glargine 25 units HS SC 09/25/25 22:00 09/25/25 21:47 25 UNITS Laboratory Results Laboratory Tests 09/25/25 05:37 Urinalysis Test 09/24/25 13:50 Urine Color Yellow (Yellow) Urine Clarity Clear (Clear) Urine pH 5.5 (5.0-9.0) Urine Specific [place] 1.039 (1.001-1.035) Urine Protein Negative (Negative) Urine Ketones Negative (Negative) Urine Blood Trace /uL (Negative) H Urine Nitrite Negative (Negative) Urine Bilirubin 1+ (Negative) Urine Urobilinogen Normal mg/dL (Negative) Urine Leukocyte Esterase Negative /uL (Negative) Urine RBC 3 /hpf (0 - 3) Urine Microscopic WBC 1 /HPF (0-3) Urine Squamous Epithelial Cells None seen /hpf (<5) Urine Bacteria None seen /hpf (None Seen) Urine Glucose 4+ mg/dL (Normal) H Labs and/or images reviewed: Labs reviewed by me Assessment/Plan Assessment/Plan #HHS: Ruled out DKA, negative anion gap, negative ketones, negative acidosis but presented BG of 410, serum osmolality 302, status post IV insulin, BG slowly came down to 391, 3O2, now below 250 at bedside check. Conservative management to continue, IV fluid, CC diet, basal bolus insulin to continue. Patient will need close follow up with chair mender outpatient michael and insulin regimen at discharge. Ruled out secondary cause of stress / trigger with ruling out UTI, respiratory infection, viral panel, any other possible trigger. #Dizziness, presyncope: Denies any fall or loss of consciousness, could be age related, physical therapy before discharge to ensure safety in the geriatric patient. Echo to rule out any cardiac structural disease. Orthostatic vitals to james #Undiscovered essential hypertension, uncontrolled: Patient is at home not on any antihypertensives presented with elevated blood pressure, between 170s to 150s, given diabetic target blood pressure 130/80 or below as per aha/ ACC guidelines but liberal blood pressure control is also reasonable in this sedated patient. Started with amlodipine 5 mg daily, needs to [facility] home with the medications. #type 2 diabetes on metformin , uncontrolled: presented with HbA1c of 10.1, started on basal bolus dose, diabetic counseling, CC diet lifestyle modification to continue. Target blood glucose in-hospital 140-180, avoid hypoglycemia. #BPH: Home tamsulosin 0.4mg, continue for now, no other urinary symptoms, UA unremarkable except high glucose load. #osteoarthritis: Age-related, mobility and stability check with the physical therapist as patient has intermittent dizziness. #vitamin d deficiency: Supplements to continue. #Transamnitis: Liver US, f/u CMP, hepatitis panel, avoid hepatotoxics. check INR/PT rule out cirrhosis vs fatty liver. PUD prophylaxis: protonix 40mg/not needed DVT prophylaxis: Levonox 40mg/SCD/brisk movement. Continue current management. BG still high above 300s Will add lantus 25 units qhs Continue SSI DW daughter and patient regarding to goal of care. Plan discussed with: Patient My Orders Orders - WESTON GUADALUPE MD Procedure Category Date Status Time Insulin Lantus PHA 09/25/25 In Process (Glargine) (Lantus) 22:00 Date of Service: Sep 26, 2025 Billing Provider: WESTON GUADALUPE MD Common Visit Codes: [id number] INP/OBS CARE(HIGH) WESTON GUADALUPE MD Sep 26, 2025 11:53
--- NOTE | 2025-09-26 16:59 | DVHSR ---
APPROVED REPORT EXAM: Two-dimensional and M-mode echocardiogram with Doppler and color Doppler. Blood Pressure: 140/83 mmHg INDICATION DIZZINESS, RULE OUT STRUCTURAL HEART DISEASE RISK FACTORS Height: 5'7, Weight: 178 DIMENSIONS LVDd 4.9 (3.8-5.7cm) LA (2D) 3.8 (1.9-4.0cm) Aortic Root 3.3 (2.0-3.7cm) LVDs 3.7 (2.5-4.0cm) LA (MM) (1.9-4.0cm) Aortic Cusp Exc 1.9 (1.5-2.0cm) EF (%) 55.0 (55-70%) Rt. Atrium 3.1 (1.9-4.0cm) Asc. Aorta 3.3 cm IVSd 1.1 (0.7-1.1cm) RV (D) 3.7 (1.8-2.4cm) PWd 0.8 (0.7-1.1cm) Mitral Valve Mitral Mitral Stenosis E wave 0.57m/s MV Mean GR. mmHg A wave 0.81m/s MV Peak GR. mmHg E/A ratio 0.7 2D MVA cm2 DECEL Time 211ms PRESS 1/2 Time ms Aortic Valve Aortic Valve Aortic Stenosis V1 1.13m/s AO Mean GR. 5mmHg V2 1.32m/s AO Peak GR. 8mmHg LVOT Diameter 2.1 (1.8-2.4cm) Doppler ASTRID 2.96cm2 Pulmonic Valve V2 0.99m/s Other Information Quality : Technically Limited Rhythm : Conclusion LVEF is normal at 55-60%, Right ventricle size and function is normal No significant valve disease noted
[2025-09-26] MEDS: INSULIN LANTUS (GLARGINE) 1 /0.01ml (100units/ml) SC SCH (21:47)
[2025-09-27] VITALS (7 sets, daily range): BP systolic 141–155; BP diastolic 75–93; PULSE 76–86; RESP 16–20; TEMP 97.3–98.6; O2SAT 96–97
[2025-09-27] MEDS ORDERED: TAMS-35 PO (13:20)
[2025-09-27] MEDS ORDERED: INSUINJ37 SC (13:20)
[2025-09-27] MEDS ORDERED: AML5T PO (13:20)
[2025-09-27] MEDS ORDERED: BLOO-329 XX (13:21)
[2025-09-27] MEDS ORDERED: GLUC1TES63 VI (13:21)
[2025-09-27] MEDS ORDERED: LANC-347 XX (13:21)
[2025-09-27] MEDS ORDERED: INSU-567 XX (13:21)
--- NOTE | 2025-09-27 13:23 | DVHDS2 ---
Discharge Summary Date of Admission Sep 24, 2025 at 15:31 Date of Discharge: Sep 27, 2025 Admitting Diagnosis #HHS: Ruled out DKA, negative anion gap, negative ketones, negative acidosis but presented BG of 410, serum osmolality 302 #Dizziness, presyncope: #Undiscovered essential hypertension, uncontrolled: #type 2 diabetes on metformin , uncontrolled: presented with HbA1c of 10.1 #BPH #osteoarthritis #vitamin d deficiency #Transamnitis Labs/Diagnostic Data: Laboratory Results Test 09/27/25 11:07 09/25/25 05:37 09/24/25 20:53 09/24/25 15:47 POC Glucose 195 mg/dl (70-106) White Blood Count 6.5 10^3/uL (4.4-10.8) Red Blood Count 4.48 10^6/uL (4.5-5.90) Hemoglobin 13.5 g/dL (13.5-17.5) Hematocrit 39.9 % (41.0-53.0) Mean Corpuscular Volume 89.2 fL (80.0-100.0) Mean Corpuscular Hemoglobin 30.1 pg (28.0-32.0) Mean Corpuscular Hemoglobin Concent 33.7 g/dL (32.0-36.0) Red Cell Distribution Width 13.3 % (11.8-14.3) Platelet Count 121 10^3/uL (140-450) Mean Platelet Volume 10.9 fL (6.9-10.8) Neutrophils (%) (Auto) 82.6 % (37.0-80.0) Lymphocytes (%) (Auto) 9.1 % (10.0-50.0) Monocytes (%) (Auto) 6.3 % (0.0-12.0) Eosinophils (%) (Auto) 1.8 % (0.0-7.0) Basophils (%) (Auto) 0.2 % (0.0-2.0) Neutrophils # (Auto) 5.3 10 ^3/uL (1.6-8.6) Lymphocytes # (Auto) 0.6 10 ^3/uL (0.4-5.4) Monocytes # (Auto) 0.4 10 ^3/uL (0-1.3) Eosinophils # (Auto) 0.1 10 ^3/uL (0-0.8) Basophils # (Auto) 0 10 ^3/uL (0-0.2) Nucleated Red Blood Cells 0.0 % Sodium Level 137 mmol/L (136-145) Potassium Level 3.1 mmol/L (3.5-5.1) Chloride Level 101 mmol/L (98-107) Carbon Dioxide Level 24 mmol/L (20-31) Anion Gap 12 (5-15) Blood Urea Nitrogen 11 mg/dL (9-23) Creatinine 0.59 mg/dL (0.700-1.30) Glomerular Filtration Rate Calc 102 mL/min (>90) BUN/Creatinine Ratio 18.6 (10.0-20.0) Serum Glucose 169 mg/dL (74-106) Calcium Level 8.7 mg/dL (8.7-10.4) Total Bilirubin 2.5 mg/dL (0.2-1.0) Aspartate Amino Transferase (AST) 126 U/L (13-40) Alanine Aminotransferase (ALT) 275 U/L (7-40) Alkaline Phosphatase 106 U/L (46-116) Total Protein 6.3 g/dL (5.7-8.2) Albumin 3.7 g/dL (3.2-4.8) Prothrombin Time 12.4 sec (9.3-11.8) Prothrombin Time INR 1.19 (0.9-1.15) Hepatitis A Antibody Total Positive (Negative) Hepatitis B Surface Antigen Negative (Negative) Hepatitis B Surface Antibody Negative (Negative) Hepatitis B Core Total Antibody Negative (Negative) Hepatitis C Antibody Negative (Negative) Influenza Type A Antigen Negative (Negative) Influenza Type B Antigen Negative (Negative) SARS-CoV-2 Antigen (Rapid) Negative (NEGATIVE) Test 09/24/25 13:50 09/24/25 13:41 Urine Color Yellow (Yellow) Urine Clarity Clear (Clear) Urine pH 5.5 (5.0-9.0) Urine Specific [place] 1.039 (1.001-1.035) Urine Protein Negative (Negative) Urine Ketones Negative (Negative) Urine Blood Trace /uL (Negative) Urine Nitrite Negative (Negative) Urine Bilirubin 1+ (Negative) Urine Urobilinogen Normal mg/dL (Negative) Urine Leukocyte Esterase Negative /uL (Negative) Urine RBC 3 /hpf (0 - 3) Urine Microscopic WBC 1 /HPF (0-3) Urine Squamous Epithelial Cells None seen /hpf (<5) Urine Bacteria None seen /hpf (None Seen) Urine Glucose 4+ mg/dL (Normal) Hemoglobin A1c 10.1 % A1C (<5.7) Serum Osmolality 302 mOsm/kg (278-298) Direct Bilirubin 2.5 mg/dL (<0.3) Beta-Hydroxybutyric Acid 0.155 mmol/L (< 0.4) Other Laboratory Tests 09/25/25 05:37 Brief Hx & Hospital Course: This is a 75 years old male with past medical history of diabetes on metformin, benign prostate hyperplasia, osteoarthritis, vitamin-D deficiency and 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 The patient was found to have blood glucose of 410. Anion gap is normal. The patient was put on IV insulin for hyperosmolar hyperglycemia syndrome. The patient subsequently improved. Blood glucose better controlled in in the 200 range now. The hemoglobin A1c is 10.1. The patient was started on insulin during this hospitalization and was advised to continuing insulin at home. The patient also found to have hypotension. The patient was started on amlodipine 5 mg daily and he tolerate it. Blood pressure is much better controlled. Blood glucose better controlled today. I am going to discharge the patient home with insulin Lantus 30 units subQ q.h.s.. Advised the nurse to teach the patient how to give insulin to himself. Dietitian also was consulted for diabetic food teaching. Today I am discharge him home. Advised him to follow up with primary care physician 1-2 weeks. Activity as tolerated. Diet per home diet. Recommend low-salt low-cholesterol 2000 ADA calorie diet. Physical exam: HEENT: Normocephalic atraumatic pupils equal react to light and accommodation. Extraocular muscles intact, conjunctiva pink, oropharynx moist, no thrush, no exudate. Lymphatic: No lymphadenopathy Cardiovascular exam: S1, S2 was heard. No murmurs, rubs, gallops Lung: Clear on auscultation bilaterally, no wheeze, rale, rhonchi. GI: Abdominal soft, nondistended, nontenderness, positive bowel sounds. Extremity: No crepitus, cyanosis, edema. Pedal pulses present bilateral. Full range of motion. Skin: Normal turgor, no rash. Psych: Alert, oriented x3. Neurology: No focal deficits, cranial nerve II to XII grossly intact. This medical document was created using an electronic medical record system with [employer] direct computerized dictation system. Although this document has been carefully reviewed, there may still be some phonetic and typographical errors. These areas are purely typographical due to imperfections of the software programs, and do not reflect any compromise in the patient's medical care. Condition at Discharge: Stable Final Diagnosis/Problems List #HHS: Ruled out DKA, negative anion gap, negative ketones, negative acidosis but presented BG of 410, serum osmolality 302 #Dizziness, presyncope: #Undiscovered essential hypertension, uncontrolled: #type 2 diabetes on metformin , uncontrolled: presented with HbA1c of 10.1 #BPH #osteoarthritis #vitamin d deficiency #Transamnitis Discharge Disposition: Home Discharge Instruct/Medications Diet: Consistent carbohydrate Activity: No Restrictions, As Tolerated Follow Up/Referral: pcp 1-2 weeks. Scheduled Amlodipine Besylate (Norvasc Tablet), 5 MG PO DAILY Glucose Blood (Glucose Meter Test Strips), 100 [email or web address] Insulin Glargine (Lantus Solostar), 30 UNIT SC HS Lisinopril (Lisinopril), 1 TAB PO DAILY, (Reported) Metformin Hydrochloride (Metformin Hcl), 1,000 MG PO DAILY, (Reported) Tamsulosin HCl (Tamsulosin Hydrochloride), 0.4 MG PO DAILY, (Reported) Tamsulosin Hcl (Flomax), 0.4 MG PO QPM Durable Medical Equipment Blood Glucose Monitoring Suppl (Blood Glucose Monitoring), MIS [email or web address], (DME) Insulin Syringe/Needle U-100 ([employer]ocate Insulin Syringe/), BOX [email or web address], (DME) Lancets (Freestyle Lancets), STRIP XX DAILY, (DME) Discharge Statement: "Patient was advised to return to the ER or call 911 if any headaches, dizziness, shortness of breath, chest pain, abdominal pain, bleeding, fevers, or worsening of medical condition. Patient was counseled about treatment plan, medications, possible side effects, patientverbalized understanding. All questions were answered to the best of my ability. This discharge took greater then 30 minutes in planning, reviewing documentation, counseling the patient, and discussing with other team members." ASSESSMENT ASSESSMENT Assessment DM uncontrolled Date of Service: Sep 27, 2025 Billing Provider: WESTON GUADALUPE MD Common Visit Codes: [id number] DISCH DAY >30min WESTON GUADALUPE MD Sep 27, 2025 13:23
== END 2025-09-27 15:54 | disposition home or self-care (01) | DRG 639 ==
LOC: ER 13:19 → OVERFLOW 15:31 → TELE-EAST 18:04 → EAST 09-25 19:36
PROVIDERS: ADMIT Internal Medicine; ATTEND Internal Medicine
DX: E11.00 Type 2 diabetes mellitus with hyperosmolarity without nonketotic hyperglycemic-hyperosmolar coma (NKHHC) (principal); E55.9 Vitamin D deficiency, unspecified; I10 Essential (primary) hypertension; N40.1 Benign prostatic hyperplasia with lower urinary tract symptoms; R35.0 Frequency of micturition; R74.01 Elevation of levels of liver transaminase levels; Z20.822 Contact with and (suspected) exposure to COVID-19; Z79.84 Long term (current) use of oral hypoglycemic drugs; Z79.4 Long term (current) use of insulin
CPT/HCPCS: 36415; 71045; 76705; 80048; 80053; 80076; 81001; 82010; 82962; 83036; 83930; 85025; 85610; 86704; 86706; 86708; 86803; 87340; 87426; 87804; 93005; 93306; 96361; 96374; G0378; J1815

== ENCOUNTER 2025-10-04 08:01 | Emergency (ER) | payer OTHER, MEDICAID ==
[~2025-10-04] VITALS: Ht 170.2 cm; Wt 79.0 kg
[~2025-10-04 08:01] MED LIST: AML5T PO; BLOO-329 XX; GLUC1TES63 VI; INSU-567 XX; INSUINJ37 SC; LANC-347 XX; LISI40TA16 PO; METF-370 PO; TAMS-35 PO; TAMS1CAP25 PO
[2025-10-04 08:10] VITALS: TEMP 97.7
--- NOTE | 2025-10-04 08:31 | ED.PDOC ---
History of Present Illness HPI Comments 75-year-old male with past medical history of hypertension, presents to the ER for chief complaint of an accidental overdose. Patient reports he accidentally took 2 tablets of Imitrex today, which is prescribed for his instead of his amlodipine. Patient denies any nausea, vomiting, chest pain, abdominal pain, or dizziness. His BP read 182/92 upon ED arrival. Chief Complaint: Overdose Time Seen by MD: 08:25 Reviewed Notes: Nurses Notes, Medications, Allergies Allergies: Coded Allergies: NO KNOWN ALLERGIES (Unverified , 09/24/25) Home Meds Active Scripts Insulin Syringe/Needle U-100 (ADVOCATE INSULIN SYRINGE/) 0.5 Mg/31 G Mis, BOX XX DAILY@DINNER, #1 11 Refills Prov:WESTON GUADALUPE MD 09/27/25 Lancets (Freestyle Lancets) Lancets Mis, STRIP XX DAILY, #100 9 Refills Prov:WESTON GUADALUPE MD 09/27/25 Blood Glucose Monitoring Suppl (Blood Glucose Monitoring) 1 Mis Mis, MIS XX DAILY@BREAKFAST, #1 Prov:WESTON GUADALUPE MD 09/27/25 Glucose Blood (Glucose Meter Test Strips) 1 Jevon Jevon, 100 JEVON DAILY@BREAKFAST, #100 MISC 9 Refills Prov:WESTON GUADALUPE MD 09/27/25 Insulin Glargine (Lantus Solostar) 100 Unit/Ml Inj, 30 UNIT SC HS, #1 BOX 5 Refills Prov:WESTON GUADALUPE MD 09/27/25 Tamsulosin Hcl (Flomax) 0.4 Mg Cap, 0.4 MG PO QPM, #90 CAP Prov:WESTON GUADALUPE MD 09/27/25 Amlodipine Besylate (NORVASC TABLET) 5 Mg Tb, 5 MG PO DAILY, #30 TAB 5 Refills Prov:WESTON GUADALUPE MD 09/27/25 Reported Medications Tamsulosin HCl (Tamsulosin Hydrochloride) 0.4 Mg Cap, 0.4 MG PO DAILY, CAP 09/24/25 Lisinopril (Lisinopril) 40 Mg Tab, 1 TAB PO DAILY, #30 TAB 5 Refills 09/24/25 Metformin Hydrochloride (Metformin Hcl) 500 Mg Tab, 1000 MG PO DAILY for 30 Days, MG 09/24/25 Information Source: Patient Mode of Arrival: Ambulatory Severity: Mild Timing: Hours Duration: Since onset Past Medical History PAST MEDICAL HISTORY: HTN Family History Family History: Reviewed,noncontributory to illness, Family hx of HTN Social History Smoker: Non-Smoker Alcohol: Denies ETOH Use Drugs: Denies Drug Use Lives In: Home Constitutional: denies: chills, diaphoresis, fatigue, fever, malaise, sweats, weakness, others EENTM: denies: blurred vision, double vision, ear bleeding, ear discharge, ear drainage, ear pain, ear ringing, eye pain, eye redness, hearing loss, mouth pain, mouth swelling, nasal discharge, nose bleeding, nose congestion, nose pain, photophobia, tearing, throat pain, throat swelling, voice changes, others Respiratory: denies: cough, hemoptysis, orthopnea, SOB at rest, shortness of breath, SOB with excertion, stridor, wheezing, others Cardiovascular: denies: chest pain, dizzy spells, diaphoresis, Dyspnea on exertion, edema, irregular heart beat, left arm pain, lightheadedness, palpitations, PND, syncope, others Gastrointestinal: denies: abdomen distended, abdominal pain, blood streaked bowels, constipated, diarrhea, dysphagia, difficulty swallowing, hematemesis, melena, nausea, poor appetite, poor fluid intake, rectal bleeding, rectal pain, vomiting, others Genitourinary: denies: burning, dysuria, flank pain, frequency, hematuria, incontinence, penile discharge, penile sore, pain, testicle pain, testicle swelling, urgency, others Neurological: denies: dizziness, fainting, headache, left sided numbness, left sided weakness, numbness, paresthesia, pre-existing deficit, right sided numbness, right sided weakness, seizure, speech problems, tingling, tremors, weakness, others Musculoskeletal: denies: back pain, gout, joint pain, joint swelling, muscle pain, muscle stiffness, neck pain, others Integumetry: denies: bruises, change in color, change in hair/nails, dryness, laceration, lesions, lumps, rash, wounds, others Allergic/Immunocompromised: denies: Difficulty Healing, Frequent Infections, Hives, Itching, others Hematologic/Lymphatic: denies: anemia, blood clots, easy bleeding, easy bruising, swollen glands, others Endocrine: denies: excessive hunger, excessive sweating, excessive thirst, excessive urination, flushing, intolerance to cold, intolerance to heat, unexplained weight gain, unexplained weight loss, others Psychiatric: denies: anxiety, bipolar disorder, depression, hopeless, panic disorder, schizophrenia, sleepless, suicidal, others All Other Systems: Reviewed and Negative Physical Exam General Appearance: Moderate Distress HEENT: Normal ENT Inspection, Pharynx Normal, TMs Normal Neck: Full Range of Motion, Non-Tender, Normal, Normal Inspection Respiratory: Chest Non-Tender, Lungs Clear, No Accessory Muscle Use, No Respiratory Distress, Normal Breath Sounds Cardiovascular: No Edema, No JVD, No Murmur, No Gallop, Normal Peripheral Pulses, Regular Rate/Rhythm Breast Exam: Deferred Gastrointestinal: No Organomegaly, Non Tender, No Pulsatile Mass, Normal Bowel Sounds, Soft Genitalia: Deferred Pelvic: Deferred Rectal: Deferred Extremities: No calf tenderness, Normal capillary refill, Normal inspection, Normal range of motion, Non-tender, No pedal edema Musculoskeletal : Apperance: Normal Neurologic: Alert, income tax return preparer II-XII nml as Tested, No Motor Deficits, Normal Affect, Normal Mood, No Sensory Deficits Cerebellar Function: Normal Reflexes: Normal Skin: Dry, Normal Color, Warm Peripheral Pulses: 3+ Radial (R), 3+ Radial (L) Lymphatic: No Adenopathy Was a procedure done? Was a procedure done?: No Differential Dx Considerations may include: Accidental overdose X-Ray, Labs, Meds, VS Vital Signs Date Time Temp Pulse Resp B/P (MAP) Pulse Ox O2 Delivery O2 Flow Rate FiO2 10/04/25 08:38 178/83 10/04/25 08:34 73 19 178/73 (108) 98 10/04/25 08:10 97.7 72 16 182/92 95 97.7 Current Medications Medications (Trade) Dose Ordered Sig/Oskar Route Start Time Stop Time Status Last Admin Amlodipine Besylate (Norvasc Tablet) 10 mg ONCE ONCE PO 10/04/25 08:30 10/04/25 08:31 DC 10/04/25 08:38 Patient alert. Came in because of high blood pressure. Accidentally had taken his 's Imitrex. Vitals stable. Answering questions. Was given Norvasc. Poison control did recommend to monitor because the blood pressure may increased because of the Imitrex. Neurological examination pristine. Continue monitoring. Time of 1ST Reevaluation: 08:30 Reevaluation 1ST: Improved Patient Education/Counseling: Diagnosis, Treatment, Prognosis Family Education/Counseling: No Family Present SEPSIS Sepsis Screen Date sepsis recognized/suspect: Oct 04, 2025 Time Sepsis recognized/suspect: 0812 Recent Procedure: No On Antibiotic Therapy: No Respiratory Rate >20: No Heart Rate >90: No Temp<36 C (96.8 F) or >38.3 C: No SBP <90 or MAP <65 mmHG: No New Acute Mental Status Change: No Is the patient on CPAP, BIPAP,: No Physician Orders Troponin-I Hs (10/04/25 08:29) Vital Signs Date Time Temp Pulse Resp B/P (MAP) Pulse Ox O2 Delivery O2 Flow Rate FiO2 10/04/25 08:38 178/83 10/04/25 08:34 73 19 178/73 (108) 98 10/04/25 08:10 97.7 72 16 182/92 95 97.7 Medications Medications Dose Ordered Sig/Oskar Route Start Time Stop Time Status Last Admin Dose Admin Amlodipine Besylate 10 mg ONCE ONCE PO 10/04/25 08:30 10/04/25 08:31 DC 10/04/25 08:38 Departure 1 Departure Time of Disposition: 08:40 Impression: Primary Impression: Hypertensive urgency Disposition: 01 HOME / SELF CARE / HOMELESS Condition: Good Discharged With: Self Critical Care Note Critical Care Time?: Yes (90 min-critical care time only) Stability Stability form required: No I personally scribed for GIBRAN COLLINS MD ([email or web address]) on 10/04/25 at 08:31. Electronically submitted by Qi Marino ([facility]). GIBRAN COLLINS MD Oct 04, 2025 08:31
[2025-10-04 08:34] VITALS: O2SAT 98
[2025-10-04 09:06] VITALS: PULSE 71; RESP 18
[2025-10-04 10:37] VITALS: BP 151/85
== END 2025-10-04 11:17 | disposition home or self-care (01) ==
LOC: ER 08:01
DX: I16.0 Hypertensive urgency (principal); I10 Essential (primary) hypertension; Z79.899 Other long term (current) drug therapy
CPT/HCPCS: 36415; 84484